=== PATIENT | female | born 1955 | race Caucasian/White ===

== ENCOUNTER 2025-05-08 14:30 | Emergency (ER) | payer MEDICARE, OTHER, SELFPAY ==
--- NOTE | 2025-05-08 14:42 | ED_ITS ---
HPI - General Adult General Chief complaint: Fall Stated complaint: MECHANICAL FALL Time Seen by Provider: 05/08/25 14:42 History of Present Illness ED Provider: Elizabet AL narrative: The patient is a 70-year-old woman who fell as she was going down some stairs. She fell at the last step. She landed on her head, her hands, and her right knee. She struck her left forehead. She had no loss of consciousness. She got up right away. An ambulance was called. She was placed in his cervical collar and she was brought to the hospital. The patient denies any significant headache. She denies any pain in her neck. She denies any pain with moving her neck. She has no chest pain or shortness of breath. She thinks that she slipped going down the stairs. There was no syncope. She has some pain in her right knee where there was an abrasion but is able to use the knee easily. One of her relatives indicated that she had some finger pain but the patient told me that she was not having any hand pain at the time. The patient has recently moved to this area from [place]. She has not yet established primary care doctor. She is on medication for her blood pressure but no anticoagulants. Related Data Allergies Allergy/AdvReac Type Severity Reaction Status Date / Time simvastatin (From Zocor) Allergy Anaphylaxis Verified 05/08/25 14:57 Review of Systems Review of Systems: Yes all other systems are reviewed and are negative [facility] Social History Social History Smoked in Last 30 Days: No Use of substances other than those prescribed or required for medical reasons: No Advance Directives: No Advance Directives Information Provided: Yes Do you have a plan to hurt others: No Plan Physical Exam ED Vital Signs: Vital Signs - 24 hr 05/08/25 14:53 05/08/25 16:56 Temperature 97.6 F 97.6 F Pulse Rate 84 84 Respiratory Rate 16 16 Blood Pressure 153/87 H 153/87 H Pulse Oximetry 94 94 Oxygen Delivery Method Room Air Room Air BMI result Body Mass Index 24.9 Const Other: The patient is a 70-year-old woman who was awake and alert. She was in a cervical collar. She looks as if she is ordinarily quite healthy and looks considerably younger than her age. She has some obvious abrasion to the left forehead. She is awake and alert and does not seem acutely ill. HENMT Other: There are some small area of abrasions to the skin of the left forehead. No other signs of trauma to the head or the face. No raccoon eyes. No ko sign. No soft tissue swelling to the face. No bony tenderness to the bones of the face. Normal jaw excursion. The pharynx is normal. Eyes Other: Pupils are round equal, conjunctivae are clear, extraocular movements intact Neck Other: No posterior midline C-spine tenderness. The patient has excellent range of motion of the neck without any apparent discomfort whatsoever. C-spine is clinically clear Neck: Yes normal visual inspection and Yes full ROM Chest Other: No chest wall tenderness Resp Effort & Inspection: normal respiratory effort Auscultation: clear to auscultation bilaterally Cardio Rate: regular rate Rhythm: regular rhythm Heart sounds: S1 normal heart sound present and S2 normal heart sound present GI Other: Abdomen is soft and nontender Skin Other: There is some small areas of abrasions of the left forehead. There is some abrasion to the skin over the right patella. Neuro Other: The patient is awake and alert with a normal mental status. Cranial nerves 2-12 are intact. She has normal strength and sensation in all extremities. She has no pronator drift. Finger-nose is normal. Her gait is normal. She walks easily. Extrem Other: I do not see any sign of injury to the fingers of either hand. 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 She has normal range of motion of all the joints of the arms. She has a slight abrasion to the right patellar but can move the knee easily an fully. There was no joint effusion. She walks easily Medications Administered Discontinued Medications Generic Name Dose Route Start Last Admin Trade Name Freq PRN Reason Stop Dose Admin Bacitracin 1 appl 05/08/25 15:09 05/08/25 15:33 Bacitracin Oint 0.9 Gm Packet TOPICAL 05/08/25 15:10 1 appl ONCE ONE Administration Protocol Bacitracin 1 appl 05/08/25 15:18 05/08/25 15:33 Bacitracin Oint 0.9 Gm Packet TOPICAL 05/08/25 15:19 1 appl ONCE ONE Administration Protocol Diphtheria/Tetanus/Acell Pertussis 0.5 ml 05/08/25 15:09 05/08/25 15:33 Diphth,Pertus(Acell),Tet Adult 0.5 Ml Syringe IM 05/08/25 15:10 0.5 ml .ONCE ONE Administration Medical Decision Making Medical Decision Making [facility] Narrative: The patient is a 70-year-old woman who comes to the emergency room after having had a fall. She has a head injury but no loss of consciousness. She has no headache. She is not on anticoagulation. She has no neck pain or pain with moving her neck. She has some abrasions to her left forehead and to her right patellar area. No full-thickness injuries. She seems to move all the joints of her extremities easily unwell. My suspicion for a fracture of her extremities is very low. I have no suspicion for a C-spine injury. I have a very low suspicion for any skull fracture or intracranial injury. I do not see any indication for imaging at the moment. Her wounds were cleaned and dressed with bacitracin. She was given an update for her tetanus. I think she may be discharged. Discharge Plan Discharge Clinical Impression: Fall, Head injury, Forehead abrasion, Abrasion of right knee Patient Disposition: Home, Self-Care Instructions: Head Injury (ED), Abrasion (ED) Additional Instructions: You have had a fall in which you injured your head and your right knee. Currently you do not seem to have any dangerous internal injuries or fractures. You has been given a tetanus shot to update your tetanus status. Please keep your skin injuries clean and dry and covered with a Band-Aid. You may apply bacitracin or other topical antibiotic like Neosporin 2 times a day for the next couple of days. Please work on getting insurance and a primary care doctor. If you have any worsening symptoms from your injuries today please return to the emergency room for re-evaluation. Referrals: [facility] [Provider Group] [facility] [place] Primary Care, [place] [Provider Group, Internal Medicine] [facility] [place] Primary Care, [facility] [Provider Group, Primary Care] Maryellen Vickers MD [Physician, Internal Medicine] Interventions: ED Discharge Assessment Last Done: 05/08/25 16:56 Discharge Date/Time: 05/08/25 16:58 Print Language: Vietnamese
[2025-05-08 14:53] VITALS: BP 152/80; BP 153/87; PULSE 84; PULSE 94; RESP 16; TEMP 36.4; O2SAT 94; O2SAT 99; BMI 24.9
[2025-05-08] MEDS: Diphth,Pertus(ACell),Tet Adult 0.5 ML SYRINGE IM (15:33)
[2025-05-08 16:56] VITALS: BP 153/87; PULSE 84; RESP 16; TEMP 36.4; O2SAT 94
== END 2025-05-08 16:58 | disposition home or self-care (01) ==
LOC: HO.ED 15:37
PROVIDERS: Emergency Provider Emergency Medicine
DX: S00.81XA Abrasion of other part of head, initial encounter (principal); S80.211A Abrasion, right knee, initial encounter; W10.9XXA Fall (on) (from) unspecified stairs and steps, initial encounter; Z91.81 History of falling; Y93.01 Activity, walking, marching and hiking; Y92.9 Unspecified place or not applicable; Y99.8 Other external cause status; Z23 Encounter for immunization
CPT/HCPCS: 90471; 90715; 99284